=== PATIENT | male | born 1960 | race Caucasian/White ===

== ENCOUNTER 2016-05-23 01:33 | Inpatient (IN) | payer MEDICAID ==
[~2016-05-23] VITALS: Ht 182.9 cm; Wt 128.8 kg
[2016-05-23] VITALS (14 sets, daily range): BP systolic 116–155; BP diastolic 65–106; PULSE 77–121; RESP 12–20; TEMP 97.2–98.5; O2SAT 93–100
--- NOTE | 2016-05-23 01:39 | NUR ---
Patient to ER bed 1 to gown for evaluation. Side rails up. Report given to My RN.
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
[2016-05-23] MEDS ORDERED: NACL 0.9% 1,000 ML IV ONE ×3 (02:00→04:00)
[2016-05-23] MEDS ORDERED: LORazepam 2 MG/ML VIAL IM ONE (02:00)
--- NOTE | 2016-05-23 02:00 | NUR ---
ER Dr. De La Cruz at bedside examining patient.
--- NOTE | 2016-05-23 02:00 | NUR ---
Pt homeless, pt unable to provide any medication history. Unable to obtain medication list
[2016-05-23] MEDS ORDERED: LORazepam 2 MG/ML VIAL (FOR ER USE) ONE (02:04)
[2016-05-23 02:12] LABS: HEMOGLOBIN 13.9 g/dL (14.0-18.0); MEAN CORPUSCULAR HEMOGLOBIN 28 pg (27-31); MEAN CORPUSCULAR HGB CONC 33 % (32-36); MEAN CORPUSCULAR VOLUME 85 fL (79.0-98.0); PLATELET COUNT (AUTO) 329 K/uL (130-430); RED BLOOD CELL COUNT(AUTO) 4.92 MIL/uL (4.2-6.2); RED CELL DISTRIBUTION WIDTH 11.6 % (9.0-15.0); WHITE BLOOD COUNT (AUTO) 17.8 K/uL (4.8-10.8)
[2016-05-23] MEDS ORDERED: LORazepam 2 MG/ML VIAL (FOR ER USE) IVP ONE ×2 (02:15→04:00)
[2016-05-23 02:28] LABS: ALANINE AMINOTRANSFERASE 31 U/L (12-78); ANION GAP 10 (5-15); ASPARTATE AMINOTRANSFERASE 32 U/L (10-37); CHLORIDE 102 mmol/L (98-107); CREATININE 1.14 mg/dL (0.55-1.30); GLUCOSE 98 mg/dL (70-99); POTASSIUM 3.9 mmol/L (3.5-5.1); SODIUM SERUM 140 mmol/L (136-145); TOTAL BILIRUBIN 0.9 mg/dL (0.0-1.0); TOTAL PROTEIN, SERUM 7.3 g/dL (6.4-8.3)
[2016-05-23 02:31] LABS: ACETAMINOPHEN < 1 ug/mL (1-30); GFR AFRICAN AMERICAN 85 mL/min (>90)
[2016-05-23 02:39] LABS: ALCOHOL, BLOOD < 3 mg/dL (<10); SALICYLATE < 1 mg/dL (3-30); UREA NITROGEN, BLOOD 18 mg/dL (8-21)
[2016-05-23 02:43] LABS: BAND % (MANUAL) 11 % (0-6); LYMPHOCYTES % (MANUAL) 7 % (20-46)
[2016-05-23 02:44] LABS: ATYPICAL LYMPHOCYTES % 1 % (0-0); BASOPHILS % (MANUAL) 0 % (0-2); EOSINOPHILS % (MANUAL) 0 % (0-7); MONOCYTES % (MANUAL) 2 % (0-11)
[2016-05-23] MEDS: PIPERACILLIN/TAZO 3.375/DEX-IS 50 ML IV SCH ×5 (04:46→23:05)
[2016-05-23] MEDS ORDERED: PIPERACILLIN/TAZOBACTAM 3.375 GM/VIAL (ZOSYN) IV ONE (05:21)
[2016-05-23] MEDS: D5/0.45 NS 1,000 ML IV SCH ×2 (05:33→12:05)
--- NOTE | 2016-05-23 05:50 | NUR ---
Patient will be admitted to care of MARIELA Milligan. Admitted to ICU unit. Will go to Bed 5. Belongings list completed. Summary report printed. Report will be given at bedside.
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
--- NOTE | 2016-05-23 07:11 | NUR ---
ENDORSEMENT Pt care endorsed to MARIELA Pichardo at bedside using nursing SBAR.
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
--- NOTE | 2016-05-23 09:16 | NUR ---
Dr. Kelly parker. Currently awaiting returned phone call.
[2016-05-23] MEDS ORDERED: ALBUTEROL SULFATE 0.083% 2.5 MG/3 ML VIAL.NEB INH PRN (09:30)
--- NOTE | 2016-05-23 09:42 | NUR ---
Nutrition Update Homero Scale 18 noted. Pt admitted for altered mental status, possible sepsis, retention of. Diet: NPO BMI: 38.5 kg/m2 RD to follow per nutrition care standards.
--- NOTE | 2016-05-23 09:55 | NUR ---
Dr. Nain parker for new consult. Spoke with Faina (MD exchange). Currently awaiting returned phone call.
--- NOTE | 2016-05-23 10:02 | NUR ---
Dr. Rosa paged for new consult. Spoke with Carissa (MD exchange). Dr. Villanuvea is zipper ironer for Dr. Rosa. Currently awaiting returned phone call.
[2016-05-23 10:07] LABS: BASOPHILS # (AUTO) 0.2 K/uL (0.0-0.2); BASOPHILS % (AUTO) 1.6 % (0.0-2.0); EOSINOPHILS # (AUTO) 0.3 K/uL (0.0-0.4); HEMATOCRIT 36.6 % (36-54); HEMOGLOBIN 12.2 g/dL (14.0-18.0); LYMPHOCYTES # (AUTO) 1.6 K/uL (1.0-5.5); LYMPHOCYTES % (AUTO) 17.3 % (20.5-51.5); MEAN CORPUSCULAR HEMOGLOBIN 28 pg (27-31); MEAN CORPUSCULAR HGB CONC 33 % (32-36); MEAN CORPUSCULAR VOLUME 85 fL (79.0-98.0); MONOCYTES # (AUTO) 0.9 K/uL (0.0-1.0); MONOCYTES % (AUTO) 9.3 % (1.7-9.3); NEUTROPHILS # (AUTO) 6.5 K/uL (1.8-7.7); NEUTROPHILS % (AUTO) 68.8 % (40.0-70.0); PLATELET COUNT (AUTO) 269 K/uL (130-430); RED BLOOD CELL COUNT(AUTO) 4.32 MIL/uL (4.2-6.2); RED CELL DISTRIBUTION WIDTH 11.9 % (9.0-15.0); WHITE BLOOD COUNT (AUTO) 9.5 K/uL (4.8-10.8)
--- NOTE | 2016-05-23 10:08 | NUR ---
Spoke with Dr. Villanueva. is not energy professional for Dr. Rosa. Dr. Sorto is energy professional for Dr. Melendez. Dr. Sorto paged. Currently awaiting returned phone call.
[2016-05-23 10:29] LABS: CALCIUM 7.7 mg/dL (8.4-11.0); CREATININE 0.94 mg/dL (0.55-1.30); POTASSIUM 3.5 mmol/L (3.5-5.1); THYROID STIMULATING HORMONE 3.39 uIu/mL (0.34-4.82)
[2016-05-23] MEDS ORDERED: LORazepam 2 MG/ML VIAL IVP ONE (10:45)
[2016-05-23 11:55] LABS: BARBITURATE, URINE NEGATIVE (NEG <=200); URINE AMPHETAMINE POSITIVE (NEG <=500)
[2016-05-23 11:56] LABS: BENZODIAZEPINE, URINE POSITIVE (NEG <=150); CANNABINOID, URINE POSITIVE (NEG <=50); COCAINE, URINE NEGATIVE (NEG <=150); METHAMPHETAMINES SCREEN,URINE POSITIVE (NEG <=500); OPIATE, URINE NEGATIVE (NEG <=100); PHENCYCLIDINE SCREEN,URINE NEGATIVE (NEG <=25); UR TRICYCLIC ANTIDEPRESSANTS NEGATIVE (NEG <=300); URINE METHADONE NEGATIVE (NEG <=200); URINE OXYCODONE SCREEN NEGATIVE (NEG <=100); URINE PROPOXYPHENE SCREEN NEGATIVE (NEG <=300)
[2016-05-23] MEDS ORDERED: ACETAMINOPHEN 325 MG TABLET PO PRN (12:00)
[2016-05-23] MEDS ORDERED: FAMOTIDINE 20 MG TABLET PO ONE (12:30)
--- NOTE | 2016-05-23 13:30 | NUR ---
Dr. Bernardino Rivers at the bedside to evaluate Pt.
[2016-05-23] MEDS: QUEtiapine FUMARATE 25 MG TABLET PO SCH ×2 (15:19→20:25)
--- NOTE | 2016-05-23 15:44 | NUR ---
TRANSFER TRANSFERRED PT TO TELEMETRY ROOM 131-A. REPORT GIVEN TO MARIELA MAIN. ALL QUESTIONS ANSWERED. PT IS MEDICALLY STABLE. A&O X4. COMPLIANT. ALL BELONGINGS INVENTORIED AND SENT WITH PT.
--- NOTE | 2016-05-23 15:45 | NUR ---
Transfer to Telemetry: Patient transferred to telemetry with two RNs. Report received by MARIELA Yates. Pt denies pain. Pt is ambulatory with assist, pt remains unsteady on feet, patient is A&Ox4. No acute signs of distress noted. Pt denies pain. IV fluids infusing well to RUE with no redness or swelling noted to site. Call light in reach. Bed alarm on. Patient oriented to call light system and phone. Patient verbalizes understanding of need to call for assist prior to ambulating. Continue to monitor pt closely.
--- NOTE | 2016-05-23 17:31 | NUR ---
Rounds: Pt sitting semi-fowlers in bed. No acute signs of distress noted at this time. IV intact to RUE with no redness or swelling noted to site. Pt denies pain. IV antibiotics infusing well. Call light in reach. No other needs noted. Continue to monitor.
--- NOTE | 2016-05-23 18:25 | NUR ---
Closing Note: Pt sitting semi-fowlers in bed. No acute signs of distress noted at this time. IV intact to RUE with no redness or swelling noted to site. Pt denies pain. No other needs noted at this time. No acute signs of confusion noted. Call light in reach. Bed alarm on. Pt is able to make needs known. Endorse plan of care to GEORGETTE RN.
--- NOTE | 2016-05-23 19:43 | NUR ---
PM ASSESSMENT PT. RESTING QUIETLY, VITAL SIGNS STABLE, NO DISTRESS NOTED, DENIES PAIN. UPDATED WITH PLAN OF CARE, CALL LIGHT WITHIN REACH, WILL CONTINUE TO MONITOR.
[2016-05-23] MEDS: LACTOBACILLUS RHAMNOSUS GG 1 CAP CAPSULE PO SCH (20:25)
--- NOTE | 2016-05-23 21:30 | NUR ---
RN ROUNDS PT. RESTING QUIETLY, VITAL SIGNS STABLE, NO DISTRESS NOTED, DENIES PAIN, CALL LIGHT WITHIN REACH, WILL CONTINUE TO MONITOR.
--- NOTE | 2016-05-23 23:30 | NUR ---
RN ROUNDS PT. RESTING QUIETLY, VITAL SIGNS STABLE, NO DISTRESS NOTED, DENIES PAIN, CALL LIGHT WITHIN REACH, WILL CONTINUE TO MONITOR.
[2016-05-24] VITALS (7 sets, daily range): BP systolic 135–147; BP diastolic 79–98; PULSE 79–98; RESP 18–20; TEMP 97.6–98.5; O2SAT 93–97
--- NOTE | 2016-05-24 | NUR ---
VOID PT. VOIDED 600 CC CLEAR YELLOW URINE INTO URINAL.
--- NOTE | 2016-05-24 02:00 | NUR ---
RN ROUNDS PT. RESTING QUIETLY, VITAL SIGNS STABLE, NO DISTRESS NOTED, DENIES PAIN, CALL LIGHT WITHIN REACH, WILL CONTINUE TO MONITOR.
--- NOTE | 2016-05-24 04:00 | NUR ---
RN ROUNDS PT. RESTING QUIETLY, VITAL SIGNS STABLE, NO DISTRESS NOTED, DENIES PAIN, CALL LIGHT WITHIN REACH, WILL CONTINUE TO MONITOR.
[2016-05-24] MEDS: D5/0.45 NS 1,000 ML IV SCH ×3 (05:16→23:42)
[2016-05-24] MEDS: PIPERACILLIN/TAZO 3.375/DEX-IS 50 ML IV SCH ×4 (05:17→23:41)
[2016-05-24 05:34] LABS: BASOPHILS # (AUTO) 0.1 K/uL (0.0-0.2); EOSINOPHILS # (AUTO) 0.4 K/uL (0.0-0.4); EOSINOPHILS % (AUTO) 4.3 % (0.0-4.0); HEMATOCRIT 36.9 % (36-54); HEMOGLOBIN 12.3 g/dL (14.0-18.0); LYMPHOCYTES # (AUTO) 1.7 K/uL (1.0-5.5); LYMPHOCYTES % (AUTO) 17.4 % (20.5-51.5); MEAN CORPUSCULAR HEMOGLOBIN 29 pg (27-31); MEAN CORPUSCULAR HGB CONC 33 % (32-36); MEAN CORPUSCULAR VOLUME 86 fL (79.0-98.0); MONOCYTES # (AUTO) 0.7 K/uL (0.0-1.0); MONOCYTES % (AUTO) 6.8 % (1.7-9.3); NEUTROPHILS # (AUTO) 7.2 K/uL (1.8-7.7); NEUTROPHILS % (AUTO) 70.5 % (40.0-70.0); PLATELET COUNT (AUTO) 271 K/uL (130-430); RED BLOOD CELL COUNT(AUTO) 4.29 MIL/uL (4.2-6.2); RED CELL DISTRIBUTION WIDTH 12.3 % (9.0-15.0); WHITE BLOOD COUNT (AUTO) 10.1 K/uL (4.8-10.8)
[2016-05-24 05:43] LABS: CALCIUM 7.9 mg/dL (8.4-11.0); CREATININE 0.96 mg/dL (0.55-1.30); POTASSIUM 3.7 mmol/L (3.5-5.1)
--- NOTE | 2016-05-24 06:00 | NUR ---
RN ROUNDS PT. RESTING QUIETLY, VITAL SIGNS STABLE, NO DISTRESS NOTED, DENIES PAIN, CALL LIGHT WITHIN REACH, WILL CONTINUE TO MONITOR.
--- NOTE | 2016-05-24 06:40 | NUR ---
CLOSING NOTES PT. RESTING QUIETLY, VITAL SIGNS STABLE, NO DISTRESS NOTED, DENIES PAIN, CALL LIGHT WITHIN REACH, ALL ANTICIPATED NEEDS MET.
--- NOTE | 2016-05-24 07:35 | NUR ---
AM Rounds: Received pt sitting semi-fowlers in bed and sleeping. No acute signs of distress noted. Breathing even and unlabored on room air. Call light in reach. No other needs noted at this time. IV intact to RUE with no redness or swelling noted to site and infusing fluids well at this time. Continue to monitor pt closely.
[2016-05-24] MEDS: FAMOTIDINE 20 MG TABLET PO SCH (08:37)
[2016-05-24] MEDS: LACTOBACILLUS RHAMNOSUS GG 1 CAP CAPSULE PO SCH ×2 (08:38→21:01)
[2016-05-24] MEDS: QUEtiapine FUMARATE 25 MG TABLET PO SCH ×3 (08:38→21:02)
--- NOTE | 2016-05-24 09:26 | NUR ---
RN Rounds: Pt sitting semi-fowlers in bed. No acute signs of distress noted. Pt tolerates AM meds well at this time. Call light in reach. Continue to monitor.
--- NOTE | 2016-05-24 11:24 | NUR ---
Rounds: Pt sitting semi-fowlers in bed. No acute signs of distress noted at this time. IV antibiotic infusing well to RUE with no redness or swelling noted to site. IV fluids rate changed per MD order. Call light in reach. Continue to monitor.
[2016-05-24] MEDS ORDERED: THIAMINE HCL 100 MG TABLET PO ONE (12:30)
[2016-05-24] MEDS ORDERED: FOLIC ACID 1 MG TABLET PO ONE (12:30)
[2016-05-24] MEDS: ALBUTEROL SULFATE 0.083% 2.5 MG/3 ML VIAL.NEB INH SCH ×2 (13:00→19:06)
--- NOTE | 2016-05-24 13:34 | NUR ---
Rounds: Pt sitting semi-fowlers in bed. No acute signs of distress noted. IV intact to RUE with no redness or swelling noted to site. Call light in reach. Continue to monitor.
--- NOTE | 2016-05-24 15:50 | NUR ---
Rounds: Pt sitting semi-fowlers in bed and sleeping. No acute signs of distress noted at this time. IV intact to RUE with no redness or swelling noted to site. Call light in reach. Pt denies pain. Continue to monitor.
--- NOTE | 2016-05-24 17:10 | NUR ---
Rounds: Pt sitting up in bed and eating dinner. No acute signs of distress noted. Pt denies pain. Call light in reach. Continue to monitor pt closely.
--- NOTE | 2016-05-24 18:33 | NUR ---
Closing Note: Pt sitting semi-fowlers in bed and watching TV. No acute signs of distress noted at this time. IV intact to RUE with no redness or swelling noted to site. Call light in reach. Pt denies pain. No other needs noted at this time. Endorse plan of care to GEORGETTE RN.
--- NOTE | 2016-05-24 19:15 | NUR ---
ROUNDS: change of shift, pt. awake, alert and oriented. denies any discomfort, on room air, no shortness of breath. IVF infusing of D5 1/2 NS @ 70 ml/hr via right antecubital. instructed to call for help if needed and verbalized understanding. call light within reach.
--- NOTE | 2016-05-24 21:00 | NUR ---
NOTES: pt. remains awake, been dozing on and off. hs snacks given per pt. request. offered hs care but wants done in am. pt. voiding large amts of urine.
--- NOTE | 2016-05-25 | NUR ---
ROUNDS: pt. sound asleep. IVPB due given.
[2016-05-25] MEDS: ALBUTEROL SULFATE 0.083% 2.5 MG/3 ML VIAL.NEB INH SCH ×4 (01:00→19:36)
--- NOTE | 2016-05-25 01:18 | NUR ---
ROUNDS Pt. is resting quietly in bed with eyes closed. Respirations are even and unlabored with visible chest rise and fall. No s/s of acute distress. VSS. IVF infusing as ordered to right a/c. Safety precautions in place. Call light to left hand. Urinal at bedside. Bed alarm on. Will continue to monitor.
--- NOTE | 2016-05-25 02:15 | NUR ---
ROUNDS: condition unchanged. sleeping soundly.
--- NOTE | 2016-05-25 04:00 | NUR ---
ROUNDS: pt. sleeping, awakened to change battery on tele box. no complaints manifested.
[2016-05-25 04:11] VITALS: BP 129/80; PULSE 82; RESP 18; TEMP 98.1; O2SAT 97
[2016-05-25] MEDS: PIPERACILLIN/TAZO 3.375/DEX-IS 50 ML IV SCH ×4 (05:53→23:10)
--- NOTE | 2016-05-25 06:39 | NUR ---
CLOSING NOTES: still sleeping when made rounds @ 0600. IV antibiotic infused. condition unchanged. IV patent. for further observation. no c/o pain.will endorse to incoming shift.
--- NOTE | 2016-05-25 06:53 | NUR ---
EMPTIED URINAL Emptied 400 mls of yellow urine from urinal. Pt. denies any pain or discomfort at this time. Denies any needs. Encouraged pt. to use call light for assistance. Safety precautions in place. Bed alarm on. Call light to left hand. Will continue to monitor.
[2016-05-25 07:01] LABS: BASOPHILS # (AUTO) 0.1 K/uL (0.0-0.2); BASOPHILS % (AUTO) 0.7 % (0.0-2.0); EOSINOPHILS # (AUTO) 0.4 K/uL (0.0-0.4); EOSINOPHILS % (AUTO) 4.8 % (0.0-4.0); HEMATOCRIT 37.6 % (36-54); HEMOGLOBIN 12.7 g/dL (14.0-18.0); LYMPHOCYTES # (AUTO) 1.9 K/uL (1.0-5.5); LYMPHOCYTES % (AUTO) 24.7 % (20.5-51.5); MEAN CORPUSCULAR HEMOGLOBIN 29 pg (27-31); MEAN CORPUSCULAR HGB CONC 34 % (32-36); MEAN CORPUSCULAR VOLUME 86 fL (79.0-98.0); MONOCYTES # (AUTO) 0.7 K/uL (0.0-1.0); MONOCYTES % (AUTO) 9.3 % (1.7-9.3); NEUTROPHILS # (AUTO) 4.4 K/uL (1.8-7.7); NEUTROPHILS % (AUTO) 60.5 % (40.0-70.0); PLATELET COUNT (AUTO) 261 K/uL (130-430); RED BLOOD CELL COUNT(AUTO) 4.39 MIL/uL (4.2-6.2); RED CELL DISTRIBUTION WIDTH 12.1 % (9.0-15.0); WHITE BLOOD COUNT (AUTO) 7.5 K/uL (4.8-10.8)
[2016-05-25 07:11] LABS: CALCIUM 8.5 mg/dL (8.4-11.0); CREATININE 0.94 mg/dL (0.55-1.30); POTASSIUM 3.7 mmol/L (3.5-5.1)
--- NOTE | 2016-05-25 07:15 | NUR ---
endorsed pt. to incoming shift with nurse Ben.
--- NOTE | 2016-05-25 07:58 | NUR ---
OPENING NOTE RECEIVED REPORT FROM OFF GOING NURSE. PATIENT RESTING COMFORTABLY AT THIS TIME. NO COMPLAINTS OF PAIN AT THIS TIME. NO NOTABLE SIGNS OF DISTRESS AT THIS TIME. PATIENTS BED IS IN LOWEST POSITION, SIDE RAILS ARE UP, AND CALL LIGHT WITHIN REACH. WILL CONTINUE TO MONITOR FOR CHANGES IS STATUS.
[2016-05-25 08:00] VITALS: BP 137/89; PULSE 84; RESP 14; TEMP 98.6; O2SAT 95
[2016-05-25] MEDS: FAMOTIDINE 20 MG TABLET PO SCH (08:08)
[2016-05-25] MEDS: LACTOBACILLUS RHAMNOSUS GG 1 CAP CAPSULE PO SCH ×2 (08:08→21:18)
[2016-05-25] MEDS: FOLIC ACID 1 MG TABLET PO SCH (08:08)
[2016-05-25] MEDS: QUEtiapine FUMARATE 25 MG TABLET PO SCH ×2 (08:08→21:17)
[2016-05-25] MEDS: THIAMINE HCL 100 MG TABLET PO SCH (08:08)
--- NOTE | 2016-05-25 10:00 | NUR ---
1000 NOTE PATIENT RESTING COMFORTABLY, WITH NO COMPLAINTS OF PAIN AT THIS TIME. NO NOTABLE SIGNS OF DISTRESS. PATIENTS BED IN LOWEST POSITION, CALL LIGHT WITHIN REACH, AND BED ALARM IS ON. WILL CONTINUE TO MONITOR FOR CHANGES IN STATUS.
[2016-05-25 12:00] VITALS: BP 131/90; PULSE 85; RESP 18; TEMP 97.4; O2SAT 96
[2016-05-25] MEDS: D5/0.45 NS 1,000 ML IV SCH (12:50)
--- NOTE | 2016-05-25 15:07 | NUR ---
Social Service Note: Pt referred to social worker school by physician due to pt being homeless. GUEST LAUNDRY ATTENDANT attempted to meet with pt at bedside; GUEST LAUNDRY ATTENDANT observed pt sleeping in bed; pt audibly snoring. GUEST LAUNDRY ATTENDANT will attempt to meet with pt when awake. Addendum: 05/25/16 at 1551 by Lima Avila LCSW GUEST LAUNDRY ATTENDANT met with pt at bedside with vocational case manager present. Pt states that he has been staying at the [facility] on [address]. Pt states that he and his son are staying there together; pt states that they were renting a room together but had to move out. Pt states that his belongings are being held by the hospital. CM states that the plan is for pt to be discharged to the [facility] tomorrow morning. GUEST LAUNDRY ATTENDANT spoke to pt about going back to [facility]; pt is agreeable; [facility] will arrange for taxi voucher when pt has DC order. Addendum: 05/25/16 at 1552 by Lima Avila LCSW [facility] has provided pt with homeless assistance resources, substance abuse treatment, and outpatient mental health resources. [facility] has also placed homeless waiver in chart.
[2016-05-25 15:26] VITALS: BP 133/83; PULSE 95; RESP 16; TEMP 98.4; O2SAT 95
--- NOTE | 2016-05-25 15:33 | NUR ---
DC PLANNING: Contact Kenia pitts at [facility] for further dc assistance, tel#[phone], fax# [phone]/ tvrn
--- NOTE | 2016-05-25 18:40 | NUR ---
1800/CLOSING NOTE AWAITING TRANSFER OF CARE TO NAIL FEEDER NURSE. PATIENT RESTING COMFORTABLY, WITH NO COMPLAINTS OF PAIN AT THIS TIME. NO NOTABLE SIGNS OF DISTRESS. PATIENTS BED IN LOWEST POSITION, CALL LIGHT WITHIN REACH, AND BED ALARM IS ON. WILL CONTINUE TO MONITOR FOR CHANGES IN STATUS.
--- NOTE | 2016-05-25 19:25 | NUR ---
initial nursing notes: Patient is awake. Patient has IV access on the right AC. Patient denies of having pain.
[2016-05-25 19:56] VITALS: BP 139/86; PULSE 84; RESP 17; TEMP 98.8; O2SAT 98
--- NOTE | 2016-05-25 21:25 | NUR ---
nursing rounds: Patient is awake. Patient is watching television.
--- NOTE | 2016-05-25 23:25 | NUR ---
nursing rounds: Patient resting in bed. Patient uses urinal to void.
[2016-05-25 23:57] VITALS: BP 136/88; PULSE 89; RESP 18; TEMP 98.2; O2SAT 95
--- NOTE | 2016-05-26 01:25 | NUR ---
nursing rounds: Patient is asleep. Patient has no shortness of breath.
--- NOTE | 2016-05-26 03:25 | NUR ---
nursing rounds: Patient is sleeping in bed. Patient has no respiratory distress.
[2016-05-26 04:00] VITALS: BP 139/90; PULSE 82; RESP 18; TEMP 98.4; O2SAT 93
--- NOTE | 2016-05-26 05:25 | NUR ---
nursing rounds: Patient calmly resting in bed. Call light within patient's reach.
[2016-05-26] MEDS: PIPERACILLIN/TAZO 3.375/DEX-IS 50 ML IV SCH (05:45)
[2016-05-26 07:20] VITALS: BP 138/94; PULSE 81
[2016-05-26] MEDS: ALBUTEROL SULFATE 0.083% 2.5 MG/3 ML VIAL.NEB INH SCH (07:22)
[2016-05-26 07:32] VITALS: BP 138/94; PULSE 78; RESP 18; TEMP 97.9; O2SAT 95
--- NOTE | 2016-05-26 07:41 | NUR ---
closing nursing notes: Patient is awake, alert and oriented X 4. Patient is in no acute respiratory distress. No episodes of fall and no injuries throughout the night warehouse selector. Provided nursing report to incoming morning shift nurse, MARIELA Alanis, at patient's bedside.
--- NOTE | 2016-05-26 08:00 | NUR ---
opening notes received pt in bed, denies pain, no sob, no distress, breathing even and unlabored. call light in reach and bed in low position, urinal in reach.
[2016-05-26] MEDS: FAMOTIDINE 20 MG TABLET PO SCH (08:31)
[2016-05-26] MEDS: LACTOBACILLUS RHAMNOSUS GG 1 CAP CAPSULE PO SCH (08:31)
[2016-05-26] MEDS: THIAMINE HCL 100 MG TABLET PO SCH (08:32)
[2016-05-26] MEDS: FOLIC ACID 1 MG TABLET PO SCH (08:33)
--- NOTE | 2016-05-26 10:00 | NUR ---
notes, patient ambulating with physical therapist in the hallway, denies pain, no sob.
--- NOTE | 2016-05-26 11:00 | NUR ---
notes; spoke with dr pritchett and got order to dc the pt and to involve the social work case manager to find a snf for the patient. patient is homeless. pt made aware of the discharge order. pt stated that he will go to [facility] snf and also he will try to get a psychiatrist over there.
[2016-05-26 11:40] VITALS: BP 149/94; PULSE 86; RESP 16; TEMP 99.1; O2SAT 96
[2016-05-26 11:50] VITALS: BP 149/94; PULSE 86; RESP 16; TEMP 99.1; O2SAT 96
--- NOTE | 2016-05-26 12:00 | NUR ---
PHYSICAL THERAPY CO-SIGN The Physical Therapy Progress Notes documented by Associate Professor Of Radiology have been reviewed. Reviewed/Co-Signed by: Annette Fernandez, PT Documentation Done by: Glenn Jasmine PTA I concur with the documentation of this COMMUNITY ASSISTANT. Plan: continue PT as per plan of care. Addendum: 05/26/16 at 1411 by Annette Fernandez PT Amended: Links added.
--- NOTE | 2016-05-26 12:45 | NUR ---
D/C Patient Patient given medication reconciliation form and D/C instructions. Exit Care provided. Patient verbalized understanding. MD discussed with patient the results and treatment provided. Ambulatory with steady gait for discharge to home. Patient in stable condition, ID band removed. IV catheter removed, intact and dressing applied, no active bleeding. Rx of given. Patient discharge with his son Virgilio. Virgilio stated that pt will stay with him. Patient educated on pain management. All belongings sent with patient.
== END 2016-05-26 12:27 | disposition home or self-care (01) | DRG 137 ==
LOC: SED 01:33 → SIC 04:24 → SMU 15:40 → STU 18:37
PROVIDERS: ADMIT Internal Medicine; ATTEND Internal Medicine
DX: J15.6 Pneumonia due to other Gram-negative bacteria (principal); G92 Toxic encephalopathy; F20.89 Other schizophrenia; F05 Delirium due to known physiological condition; I10 Essential (primary) hypertension; F22 Delusional disorders; R33.9 Retention of urine, unspecified; F41.9 Anxiety disorder, unspecified; D72.829 Elevated white blood cell count, unspecified; R45.1 Restlessness and agitation; F19.20 Other psychoactive substance dependence, uncomplicated; Z59.0 Homelessness; Z65.3 Problems related to other legal circumstances; Z81.8 Family history of other mental and behavioral disorders; Z91.5 Personal history of self-harm
CPT/HCPCS: 36415; 70450-TC; 71010; 76770; 80048; 80053; 80307; 82040-TC; 82140-TC; 84443-TC; 85007; 85025; 85027; 87040-TC; 87081; 87086; 87205-TC; 93005; 94640; 94760; 96361; 96374; 96376; 97110-GP; 97116-GP; 97530-GP; 99285; G0480; G0481; G0482; J2060; J2543; J7030

== ENCOUNTER 2016-07-28 02:26 | Emergency (ER) | payer MEDICAID ==
[~2016-07-28] VITALS: Ht 182.9 cm; Wt 122.5 kg
[2016-07-28 02:36] VITALS: BP_SYST 155
[2016-07-28] MEDS ORDERED: IBUPROFEN 600 MG TABLET PO ONE (03:30)
[2016-07-28] MEDS ORDERED: LIDOCAINE VISCOUS 2%, 15 ML UDC MM ONE (03:30)
[2016-07-28 04:20] VITALS: BP_SYST 138
== END 2016-07-28 04:20 | disposition home or self-care (01) ==
LOC: SED 02:26
DX: K12.1 Other forms of stomatitis (principal); I10 Essential (primary) hypertension; Z86.59 Personal history of other mental and behavioral disorders
CPT/HCPCS: 99283; J2001